=== PATIENT | male | born 1980 | race Caucasian/White ===

== ENCOUNTER → 2020-03-13 09:37 | Outpatient (CLI) | payer BC, SELFPAY ==
--- NOTE | ~2020-03-13 | XR_ITS ---
XR elbow LT 2V DATE: 03/13/2020 09:50 INDICATION: Elbow pain, tenderness. Ulnar nerve lesion, left upper limb TECHNIQUE: AP and lateral views COMPARISON: None FINDINGS: Dorsal olecranon process spur. No fracture or dislocation of the left elbow or joint effusion. No periosteal reaction or bone destru ction. Joint spaces are relatively well preserved. IMPRESSION: Dorsal olecranon process spur Reviewed, dictated and finalized at location A.
== END ==
PROVIDERS: PCP Family Medicine; Visit Provider Family Medicine
DX: G56.22 Lesion of ulnar nerve, left upper limb (principal); M77.8 Other enthesopathies, not elsewhere classified
CPT/HCPCS: 73070

== ENCOUNTER 2020-04-30 15:30 | Outpatient (RCR) | payer BC, SELFPAY ==
--- NOTE | 2020-04-01 14:40 | PTOPEVAL ---
Thank you for referring Joe Leyva to [facility].? The patient is scheduled to be seen for therapy 1-2 x/week for 4 weeks. Please review, sign, date and return this plan of care TEO. I agree with and certify that the following plan of care is medically necessary. Referring Physician Date Admitting Provider: Attending Provider: Fredis Silver MD *PT Outpatient Evaluation Start: 04/01/20 13:21 Freq: Status: Active Protocol: Document 04/01/20 13:21 DOMINIC (Rec: 04/01/20 14:00 DOMINIC [email or web address]) Therapy Assessment Status Assessment Status Assessment Status Evaluation Outpatient Past Medical History Past Medical History No Past Medical/Surgical History Patient/Family Denies Significant Past Medical/ Surgical History Source of Past Medical History Patient Evaluation Information Problem Diagnosis left elbow pain Onset 2-3 years Cause bone spur Additional Evaluation Detail plays roller hockey, fell onto elbows but no known specific injury. Subjective Information Reports increased left elbow Query Text:As Reported By Patient/ pain that has progressed with Family intensity. He has increased pain with pressure or WB on left elbow. He has increased pain with heavy lifting, push- ups or working out. He reports numbness and tingling of posterior elbow region with resistance activites. Denies increased pain with writing, typing or use of the phone. Diagnostic Tests X-Rays For This Problem Yes: bone spur Pain Assessment Timing of Pain Assessment Timing of Pain Assessment Assessment Pain Scale Pain Scale Used Numeric (1 - 10) Self Report Pain Assessment Left Elbow(s) Reported Pain Level 1 Pain Description Aching,Numbness,Radiating, Tingling Lowest Pain Intensity 0 Greatest Pain Intensity 6 Pain Aggravating Factors Lifting,Other Pain Aggravating Factors Other Pain Aggravating Factors WB on left UE Pain Relief Interventions Used By [facility] Patient Pain Score Pain Score 1: Self Report Upper Extremity Range of Motion General Upper Extremity Range of Motion Gross Upper Extremity Range of Motion elbow flex/ext WNL right and Comments left Wrist Range of M
--- NOTE | 2020-04-30 16:32 | PTOPEVAL ---
Thank you for referring Joe Leyva to [facility].? As a result of therapy services pt demonstrates improved symptoms with ability to perform all normal activities without pain. He has achieved his therapy goals. He has reached maximal potential with skilled therapy. DC skilled PT at this time. Please review, sign, date and return this plan of care TEO. I agree with and certify that the following plan of care is medically necessary. Referring Physician Date Attending Provider: Fredis Silver MD Discharge Note *PT Outpatient Evaluation Start: 04/01/20 13:21 Freq: Status: Active Protocol: Document 04/30/20 16:04 DOMINIC (Rec: 04/30/20 16:28 [facility] [email or web address]) Outpatient Past Medical History Past Medical History No Past Medical/Surgical History Patient/Family Denies Significant Past Medical/ Surgical History Source of Past Medical History Patient Evaluation Information Problem Diagnosis left elbow pain Onset 2-3 years Cause bone spur Additional Evaluation Detail plays roller hockey, fell onto elbows but no known specific injury. Subjective Information He denies any pain with Query Text:As Reported By Patient/ lifting, push-up or planks. He Family denies pain with weight bearing pressure on elbow when position arm on the armrest or desk. 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 Pain Assessment Timing of Pain Assessment Timing of Pain Assessment Re-assessment Pain Scale Pain Scale Used Numeric (1 - 10) Self Report Pain Assessment Left Elbow(s) Reported Pain Level 0 Lowest Pain Intensity 0 Greatest Pain Intensity 0 Pain Score Pain Score 0: Self Report Upper Extremity Range of Motion General Upper Extremity Range of Motion Gross Upper Extremity Range of Motion elbow flex/ext WNL right and Comments left Wrist Range of Motion Left Wrist Flexion - Active 75 Wrist Extension - Active 70 Wrist Range of Motion Comments right: flex: 85 dg, ext: 70 dg Upper Extremity Muscle Strength Testing General Upper Extremity Strength Gross Upper Extremity Strength Comments no pain with left elbow ext resistance, 5/5 for wrist, elbow and shoulder Palpation Assessment Palpation Palpation no tenderness of superior aspect of olecranon/distal tricep
== END 2020-05-11 09:39 | disposition home or self-care (01) ==
LOC: ANHPT 15:30
PROVIDERS: PCP Family Medicine; Visit Provider Orthopaedic Surgery
DX: M25.522 Pain in left elbow (principal)
CPT/HCPCS: 97035; 97110; 97161

== ENCOUNTER 2024-07-19 13:43 | Outpatient (CLI) | payer OTHER, SELFPAY ==
--- NOTE | ~2024-07-19 | XR_ITS ---
EXAMINATION: XR elbow RT min 3V DATE: 07/19/2024 13:58 INDICATION: Unspecified injury of right elbow, initial encounter. Elbow pain. TECHNIQUE: 4 views of right elbow were obtained. COMPARISON: None. FINDINGS: Alignment is normal. No fracture. There is mild elbow joint osteoarthritis. There are enthe sophytes at medial and lateral humeral epicondyles and olecranon. No elbow joint effusion. IMPRESSION: 1. Mild elbow joint osteoarthritis. Reviewed, dictated and finalized at location A. 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
== END 2024-07-19 13:44 | disposition home or self-care (01) ==
LOC: GOSHIMG 13:44
PROVIDERS: PCP Family Medicine; Visit Provider Nurse Practitioner Family
DX: M19.021 Primary osteoarthritis, right elbow (principal); S59.901A Unspecified injury of right elbow, initial encounter; X58.XXXA Exposure to other specified factors, initial encounter
CPT/HCPCS: 73080

== ENCOUNTER 2025-03-03 14:31 | Outpatient (CLI) | payer OTHER, SELFPAY ==
--- NOTE | ~2025-03-03 | XR_ITS ---
XR_CERV2-3V_CR 03/03/2025 15:02 Indication: Neck pain for 3-4 months Procedure: 4 view cervical spine Comparison: No prior studies for comparison. Findings: There is multilevel uncinate and facet hypertrophy. Lung apices are normal. Odontoid proces s is normal. Lateral masses normally aligned. No fracture, subluxation or dislocation. Impression: 1: Mild cervical spondylosis. Reviewed, dictated and finalized at location B. Impression: 1: Mild cervical spondylosis.
== END 2025-03-03 14:32 | disposition home or self-care (01) ==
PROVIDERS: PCP Family Medicine; Visit Provider Student in an Organized Health Care Education/Training Program
DX: M47.812 Spondylosis without myelopathy or radiculopathy, cervical region (principal)
CPT/HCPCS: 72040

== ENCOUNTER 2025-04-29 08:00 | Outpatient (RCR) | payer OTHER, SELFPAY ==
--- NOTE | 2025-03-21 16:38 | OPREHPOC ---
Outpatient Therapy Plan of Care This is a Multidisciplinary Plan of Care that may contain components documented by all disciplines (PT, OT, and ST.) PT Problem 1 PT Problem #1 Knowledge Deficit PT Goal 1 Goal / Goal Update 1. Patient to demonstrate independence with HEP for improved self-reliance of symptom management. Target Visit 4 PT Problem 2 PT Problem #2 Pain PT Goal 1 Goal / Goal Update 1. Patient to decrease subjective reports of pain to <3/10 for improved ADL tolerance. 2. Patient to report an improvement in RUE radiating symptoms by 50% to increase ability to perform ADLs. Target Visit 8 PT Problem 3 PT Problem #3 Impaired Range of Motion PT Goal 1 Goal / Goal Update 1. Patient to demonstrate an increase of cervical extension active range of motion with minimal complaints of pain and radicular signs to RUE Target Visit 8 PT Problem 4 PT Problem #4 Impaired Strength PT Goal 1 Goal / Goal Update 1. Pt will demonstrate 5/5 R triceps strength to show decreased myotomal strength loss Target Visit 8
--- NOTE | 2025-03-21 16:39 | PTOPEVAL1 ---
Assessment and note entered by Angel Molina PT Evaluation Information Assessment Status Evaluation Diagnosis Cervical radiculopathy ICD-10 Condition Codes (PT) Cervicalgia M54.2,Radiculopathy, cervical M54.13 Onset gradual onset Subjective Information Pt states He has had pain in his right upper arm for a month, but it has gotten significantly worse the past 10 days. The pain is a constant ache, but he will get a shooting pain down his arm if he moves a certain way. Pt notes since starting prednisone his symptoms have lessened but are still present and he still having difficulty sleeping. 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 Reported Pain Level Pain Score 0,3: Self Report Assessment PT Clinical Summary Patient presents to physical therapy with a primary issue of RUE pain since late february while on vacation. Patient demonstrates myotomal weakness, pain, decreased cervical mobility, abnormal posture, and decreased flexibility all consistent with Cervical nerve root compression. All deficits limit their ability to perform activities of daily living and functional movements. Patient will benefit from skilled physical therapy to address the above listed deficits and return to prior level of function. Home exercise program instructed and written handout provided, exercises tolerated well with no adverse effects to note post-session. Patient was educated on importance of adherence to home exercise program. Patient was also educated on anatomy, prognosis, home modalities, and plan of care. Plan of Care Interventions Electrical Stimulation,Hot Pack/Cold Pack,Manual Therapy,Mechanical Traction,Neuro Re-education, Therapeutic Activities,Therapeutic Exercise,Other PT Services Indicated Yes Treatment Frequency and 2x week 8 visits Duration These treatments will address the objective and functional deficits as defined above. The patient will be advanced safely and appropriately in order for the patient to progress towards his/her prior level of function. Additional exercises will be introduced and as well as a comprehensive home exercise program upon discharge, if needed, ?to ensure carryover of functional gains achieved in the clinic. This treatment plan has been reviewed and agreement upon by the patient.
--- NOTE | 2025-04-29 08:54 | PTOPDC ---
Assessment and note entered by Angel Molina PT Evaluation Information Assessment Status Discharge Diagnosis Cervical radiculopathy ICD-10 Condition Codes (PT) Cervicalgia M54.2,Radiculopathy, cervical M54.13 Onset gradual onset Subjective Information Pt reports since last week after he left therapy he did have slight increased pain in the R arm preventing him from laying flat and having to sleep at a slightly elevated position. Pt states since starting therapy he feels 80% better but notes continued numbness in his fingers, tingling based on positioning of neck and slight strength differences from R to L. Pt states he will continue physical therapy exercises at home Reported Pain Level Pain Score 0,0: Self Report Assessment PT Clinical Summary Patient's cervical radiculopathy has improved overall as evidenced by advancements in decreased symptoms and increased mobility, strength, and overall functional use of the extremity. However, some limitations are still present such as continued radicular symptoms in R arm. Pt has made progressions with physical therapy but signs of nerve root compression persist primarily following a C6-C7 pattern. Pt has tried different modalities such as mechanical traction but all have made no change or slight increase in symptoms . Pt would benefit from further imaging such as MRI to detect any structural changes causing nerve root compression. Plan of Care PT Services Indicated No
== END 2025-04-29 16:08 | disposition home or self-care (01) ==
LOC: ANHGOSHPT 08:00
PROVIDERS: PCP Family Medicine; Visit Provider Family Medicine
DX: M79.601 Pain in right arm (principal); R20.0 Anesthesia of skin; M54.2 Cervicalgia
CPT/HCPCS: 97012; 97110; 97112; 97140; 97161

== ENCOUNTER 2025-07-28 07:48 | Day surgery (SDC) | payer OTHER, SELFPAY ==
[2025-07-17 09:32] VITALS: BMI 30.8
--- NOTE | ~2025-07-28 | XR_ITS ---
XR fluoroscopy no charge Indication:right C6-7 interlaminar epidural steroid injection TECHNIQUE: Fluoroscopy used during right C6-7 interlaminar epidural steroid injection performed by [Avni Mckinley MD] on 07/28/2025. 26 seconds of fluoroscopy time with 4 fluoroscopic images captured. FINDINGS: Correlate with procedure note. IMPRESSION: Fluoroscopy used during right C6-7 interlaminar epidural steroid injection. Reviewed, dictated and finalized at location O. ANICAL FIELD ENGINEER IMPRESSION: Fluoroscopy used during right C6-7 interlaminar epidural steroid in jection.
--- NOTE | 2025-07-28 08:12 | WPDHPUPDATE1 ---
History and Physical Update Update Date/Time: 07/28/25 08:12 History and Physical has been reviewed, including an updated exam of the patient. There are NO changes in the patient's condition. Risks, benefits, and alternatives have been discussed and questions answered. Patient agrees to proceed with procedure.
--- NOTE | 2025-07-28 08:13 | P.OP_ITS ---
Procedure Note - Detailed Date of Procedure 07/28/25 Pre-op Diagnosis Cervical Radiculopathy Post-op Diagnosis Same Procedure Performed [Rightward] Cervical Interlaminar Epidural Steroid Injection at C6-7 under Fluoroscopic Guidance and with Contrast Control. Surgeon Avni Mckinley MD Anesthesia Local Description of Procedure INFORMED CONSENT: Risks, benefits and alternatives to the procedure were discussed in detail with the patient who expressed explicit understanding and consent to proceed. Patient was informed verbally and in written form regarding the risks associated with the procedure including the low risk of serious infection, bleeding/bruising, allergic reaction, nerve or organ injury, paralysis, procedural site pain or discomfort, worsening pain and/or mobility, failure to treat and/or disfigurement. The patient expressed explicit understanding and consent to proceed. All materials required for the procedure were available prior to procedure start. Site and side was marked prior to procedure and confirmed in the presence of the patient. PROCEDURE IN DETAIL: The patient was brought to the procedural suite and placed in the prone position. Patient's head was positioned and stabilized with a ProneView pillow or equivalent. Patient was made comfortable with use of pillows under the chest, hips and ankles. Skin overlying the injection site was prepared broadly with ChloraPrep applicator and draped in a sterile manner. Aseptic technique was employed throughout. The endplates of the vertebral body at the site of interest were aligned in the AP view. Slight caudad tilt and ipsilateral oblique angulation was utilized to optimize visualization of the targeted posterior intervertebral foramen at C6-7. Local anesthesia was established by infiltration with approximately 5 mL of 2% lidocaine via a 1-1/2 inch 27-gauge needle. A 20-gauge 4-inch Tuohy epidural needle was advanced intermittently until appropriate loss of resistance to air was identified via plastic loss of resistance syringe. Lateral view was used to confirm the appropriate positioning of the needle tip within the posterior epidural space. In the AP view, 2.0 mL of Omnipaque 300 contrast medium was injected after negative aspiration for CSF, blood or other bodily fluid, showing appropriate epidural spread of contrast without evidence of intravascular or intrathecal placement. After negative repeat aspiration for CSF, blood or other bodily fluid, A 4 mL solution containing 10 mg of dexamethasone in sterile PF Normal Saline was injected after negative repeat aspiration. Appropriate spread of the injectate was confirmed with washout of previously injected contrast. No paresthesias were elicited. Needle was removed completely intact without difficulty. Images were saved and documented in the patient chart. Patient's skin was cleansed and sterile bandage applied. The patient tolerated the procedure well. The patient was transported to the recovery area in stable condition where they were observed for an appropriate amount of time prior to discharge, without e vidence of complication. The patient was instructed to avoid excessive activity for the next 48 hours, including overhead work, reaching or extended device/computer usage. Showers only for 48 hours. They were instructed not to drive or operate heavy machinery for 24 hours. They are to monitor for severe headaches, fevers, chills, night sweats, erythema/swelling at the site or any other signs of infection, bleeding/bruising, bowel or bladder changes as well as new pain, weakness or numbness in the upper or lower extremity. Should they notice these changes, they are instructed to call our office immediately or report directly to the nearest Emergency Department if no answer or if after posted office hours. CONTRAST WASTED: 28mL Omnipaque 300. Complications No immediate complications Condition Stable Disposition Same day [facility] Billing Surgery - Charge Forward: Surgery Billing
--- OUTSIDE RECORDS SUMMARY | 2025-07-28 08:18 | XMS_ITS | Clinical Summary ---
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 This disclosure is being madepursuant to the Care Everywhere program and may not contain all information available regarding this patient. Last updated 18.[facility] Allergies No known active allergies Medications * Be aware that medications may not be up to date on this document. Alwaysverify current medications with the patient. omeprazole (PRILOSEC) 10 MG capsule Take 10 mg by mouth daily before breakfast Active Social History Tobacco Use Types Packs/Day Years Used Date Smoking Tobacco: Never Smokeless Tobacco: Never Sex and Gender Information Value Date Recorded Sex Assigned at Not on file Legal Sex Male 9:50 AM CDT Gender Identity Not on file Sexual Orientation Not on file Last Filed Vital Signs Vital Sign Reading Time Taken Comments Blood Pressure 118/74 02/07/2019 10:35 AM CDT Pulse 84 02/07/2019 10:35 AM CDT Temperature 37.4 C (99.4 F) 02/07/2019 10:35 AM CDT Respiratory Rate 16 02/07/2019 10:35 AM CDT Oxygen Saturation 98% 02/07/2019 10:35 AM CDT Inhaled Oxygen Concentration - - Weight 104.3 kg (230 lb) 02/07/2019 10:35 AM CDT Height 190.5 cm (6' 3) 02/07/2019 10:35 AM CDT Body Mass Index 28.75 02/07/2019 10:35 AM CDT Plan of Treatment Health Maintenance Due Date Last Done Comments LIPID TESTING 1980 HIV SCREENING 1995 HEPATITIS C SCREENING 08/03/1998 DTAP/TDAP/TD VACCINES (1 - Tdap) 1999 HEPATITIS B VACCINE (1 of 3 - 19+ 3-dose series) 1999 HPV VACCINE (1 - 3-dose SCDM series) 2007 DEPRESSION SCREENING 2024 COVID-19 VACCINE (1 - 2024-2 6 season) 2025 INFLUENZA VACCINE (#1) 2025 ZOSTER VACCINE (1 of 2) 2030 HIB VACCINE Aged Out No longer eligi ble based on patient's age to complete this topic MENINGOCOCCAL (Group B) VACC INE SHARED DECISION-MAKING Aged Out No longer eligibl e based on patient's age to complete this topic MENINGOCOCCAL GROUPS A/C/Y/W VACCINE Aged Out No longer eligible b ased on patient's age to complete this topic PNEUMOCOCCAL VACCINE Aged Out No long er eligible based on patient's age to complete this topic Insurance [facility]
--- OUTSIDE RECORDS SUMMARY | 2025-07-28 08:18 | XMS_ITS | Clinical Summary ---
Author Organization [facility] at the [facility] Address [address] [place] [address] Care Team Providers Care Telecommunications Field Engineer Name Role Phone Beverly Carbajal MD Primary Care Provider + Encounters Date Type Department Care Team Description 06/25/2025 8:46 AM INTEGRITY ASSESSOR - 06/25/2025 11:59 PM INTEGRITY ASSESSOR Hospital Encounter [address] [address] Radiculopathy, cervical region Discharge Disposition: Discharge to home or self care from Last 3 Months Social History Tobacco Use Types Packs/Day Years Used Date Smoking Tobacco: Never Assessed Sex and Gender Information Value Date Recorded Sex Assigned at Not on file Legal Sex Male 9:50 AM INTEGRITY ASSESSOR Gender Identity Not on file Sexual Orientation Not on file Plan of Treatment Health Maintenance Due Date Last Done Comments Depression Screening 1980 Hepatitis C Screening 1980 Varicella Vaccines (1 of 2 - 13+ 2-dose series) 1993 Regular Well Visit/Exam 18-64 1998 HPV Vaccines (1 - 3-dose SCDM series) 2007 Covid-19 Vaccine ( season) 2025 12/01/2020, 11/10/2020, 10/28/2020 Influenza Vaccine (#1) 2025 , 05/26/2020, 06/07/2016 DTaP/Tdap/Td Vaccine (7 - Td or Tdap) 01/08/2034 01/09/2024, 10/11/2013, 03/13/1998, Additional history exists Hepatitis B Screening Completed 09/30/1998 , 04/14/1998, 03/13/1998 Pneumococcal vaccine <65 Aged Out No longer eligible based on patient's age to complete this topic Procedures Procedure Name Priority Date/Time Associated Diagnosis Comments MRI CERVICAL SPINE WO CONTRAST Schedule Routine, Read Routine (OP Routine) 06/25/2025 9:22 AM INTEGRITY ASSESSOR Radiculopathy, cervical region from Last 3 Months Results * MRI Cervical Spine WO Contrast (06/25/2025 9:22 AM INTEGRITY ASSESSOR) Anatomical Region Laterality Modality Spine N/A Magnetic Resonan ce 06/25/2025 9:46 AM INTEGRITY ASSESSOR Impressions 06/25/2025 9:46 AM INTEGRITY ASSESSOR 1. Multilevel cervical disc degeneration with thickened ligamentum flavum, uncovertebral spurring and facet arthropathy as described. The spinal canal narrowing is most noticeable at C6-C7. 2. Neural foraminal stenosis ranging up to severe at C6-C7 and to a lesser extent at the right at C5-C6. 3. Other findings as above. 4. Previous imaging studies are not available for comparison. Electronically signed by: Kelvin John D.O. Narrative 06/25/2025 9:46 AM INTEGRITY ASSESSOR EXAM DESCRIPTION:MRI CERVICAL SPINE WO CONTRAST REASON FOR Study: rt shoulder pain , numbness to rt side of neck that radiates down right arm No known injury , pain x 5 months radiculopathy, cervical region TECHNIQUE: Sagittal and Axial imaging includes T1, T2, STIR and gradient echo sequences. COMPARISON:None available FINDINGS: Please note the axial T2-weighted sequence is nondiagnostic due to imaging technique as evidenced by lack of differentiation between the CSF and cervical cord. ALIGNMENT: Anterior posterior alignment is maintained. VERTEBRAE: No acute compression fracture in the cervical spine. If trauma is suspected then a CT has higher sensitivity for spinal fractures again be obtained as clinically indicated. Multilevel endplate degenerative change and marginal spur formation. DISCS: Multilevel disc desiccation and height loss. HARDWARE: None in the spine. CORD: No definite T2 hyperintense cord signal alteration is reproduced on 2 separate sequences. INDIVIDUAL LEVELS: C2-C3: No significant disc bulge, spinal canal or neural foraminal narrowing. C3-C4: No significant disc bulge, spinal canal or neural foraminal narrowing. C4-C5: Central disc protrusion without significant spinal canal stenosis. Uncovertebral spurring and facet arthropathy with mild right and no significant left neural foraminal narrowing. C5-C6: Posterior disc osteophyte complex and superimposed disc protrusion eccentric to the right. Thickened ligamentum flavum. Mild spinal canal stenosis. Uncovertebral spurring and facet arthropathy with moderate to severe right and no significant left neural foraminal narrowing. C6-C7: Posterior discussion right complex and superimposed disc protrusions along the neural foramen. Thickened ligamentum flavum. Mild to moderate spinal canal stenosis. Uncovertebral spurring and facet arthropathy with severe neural foraminal narrowing on both sides. C7-T1: Minor disc bulge with thickened ligamentum flavum. No significant spinal canal stenosis. Uncovertebral spurring and facet arthropathy with mild bilateral neural foraminal narrowing. UPPER THORACIC: Incompletely imaged. No high-grade spinal canal stenosis. Procedure Note Kelvin John, DO - 06/25/2025 EXAM DESCRIPTION:MRI CERVICAL SPINE WO CONTRAST REASON FOR Study: rt shoulder pain , numbness to rt side of neck that radiates down right arm No known injury , pain x 5 months radiculopathy, cervical region TECHNIQUE: Sagittal and Axial imaging includes T1, T2, STIR and gradient echo sequences. COMPARISON:None available FINDINGS: Please note the axial T2-weighted sequence is nondiagnostic due to imaging technique as evidenced by lack of differentiation between the CSF and cervical cord. ALIGNMENT: Anterior posterior alignment is maintained. VERTEBRAE: No acute compression fracture in the cervical spine. If trauma is suspected then a CT has higher sensitivity for spinal fractures again be obtained as clinically indicated. Multilevel endplate degenerative change and marginal spur formation. DISCS: Multilevel disc desiccation and height loss. HARDWARE: None in the spine. CORD: No definite T2 hyperintense cord signal alteration is reproduced on 2 separate sequences. INDIVIDUAL LEVELS: C2-C3: No significant disc bulge, spinal canal or neural foraminal narrowing. C3-C4: No significant disc bulge, spinal canal or neural foraminal narrowing. C4-C5: Central disc protrusion without significant spinal canal stenosis. Uncovertebral spurring and facet arthropathy with mild right and no significant left neural foraminal narrowing. C5-C6: Posterior disc osteophyte complex and superimposed disc protrusion eccentric to the right. Thickened ligamentum flavum. Mild spinal canal stenosis. Uncovertebral spurring and facet arthropathy with moderate to severe right and no significant left neural foraminal narrowing. C6-C7: Posterior discussion right complex and superimposed disc protrusions along the neural foramen. Thickened ligamentum flavum. Mild to moderate spinal canal stenosis. Uncovertebral spurring and facet arthropathy with severe neural foraminal narrowing on both sides. C7-T1: Minor disc bulge with thickened ligamentum flavum. No significant spinal canal stenosis. Uncovertebral spurring and facet arthropathy with mild bilateral neural foraminal narrowing. UPPER THORACIC: Incompletely imaged. No high-grade spinal canal stenosis. IMPRESSION: 1. Multilevel cervical disc degeneration with thickened ligamentum flavum, uncovertebral spurring and facet arthropathy as described. The spinal canal narrowing is most noticeable at C6-C7. 2. Neural foraminal stenosis ranging up to severe at C6-C7 and to a lesser extent at the right at C5-C6. 3. Other findings as above. 4. Previous imaging studies are not available for comparison. Electronically signed by: Kelvin John D.O. Shirin Hidalgo NP IMG MRI PROCEDURES Fin al Result from Last [address] AINSLEY [place], [facility] [employer] Care Teams Telecommunications Field Engineer Relationship Specialty Start Date End Date Beverly Carbajal MD [facility] [facility] [place] [address] PCP - General Family Medicine 06/13/25
[2025-07-28 08:43] VITALS: BP 136/105; PULSE 64; RESP 18; TEMP 36.6; O2SAT 100
[2025-07-28 09:04] VITALS: BP 155/98; PULSE 67; RESP 13; O2SAT 99
[2025-07-28] MEDS: LIDOCAINE 1% PF INJ 5 ML VIAL INFILTRATE (09:05)
[2025-07-28] MEDS: DEXAMETHASONE SODIUM PHOSP/PF 10 MG/ML 1 ML VIAL (09:06)
[2025-07-28 09:07] VITALS: BP 149/97; PULSE 69; RESP 13; O2SAT 99
[2025-07-28 09:11] VITALS: BP 150/99; PULSE 62; RESP 16; O2SAT 100
== END 2025-07-28 09:28 | disposition home or self-care (01) ==
PROVIDERS: PCP Family Medicine; Visit Provider Anesthesiology Pain Medicine
PROC: (CPT 62321; principal; 2025-07-28 09:10)
DX: M54.12 Radiculopathy, cervical region (principal)
CPT/HCPCS: 62321; 99199